=== PATIENT | female | born 1985 | race Caucasian/White ===

== ENCOUNTER 2021-03-01 19:37 | Emergency (ER) | payer SELFPAY ==
[~2021-03-01] VITALS: Ht 160 cm; Wt 54.5 kg
[2021-03-01 20:34] LABS: HEMATOCRIT 41.6 % (37.0-47.0); HEMOGLOBIN 13.7 g/dl (12.0-16.0); IMMATURE GRANULOCYTES 0.1 % (0.0-5.0); MEAN CELL VOLUME 91.8 fL CALC (80.0-100.0); MEAN CORPUSCULAR HGB 30.2 pG CALC (26.0-32.0); MEAN CORPUSCULAR HGB CONC 32.9 g/dL CAL (32.0-36.0); NEUT# 5.68 thou/uL (2.00-7.15); RED BLOOD COUNT 4.53 mill/uL (4.20-5.60); RED CELL DISTRI WIDTH 15.5 % (11.5-15.5)
[2021-03-01 20:53] LABS: ALBUMIN 5.2 g/dL (3.2-5.0); ALKALINE PHOSPHATASE 69 u/l (38-126); ANION GAP 22 (6-22 (CALC)); BILIRUBIN, TOTAL 0.7 mg/dL (0.0-1.4); BUN 11 mg/dL (7-17); BUN/CREATININE RATIO 16 (12-20 (CALC)); CARBON DIOXIDE 24 mmol/l (22-30); CHLORIDE 103 mmol/l (95-108); CREATININE 0.7 mg/dL (0.5-1.0); ETHYL ALCOHOL 277 mg/dl (0-30); GFR > 60 ML/MIN (>=60 (CALC)); GFR FOR AFR.AMER. > 60 ML/MIN (>=60 (CALC)); MAGNESIUM 1.7 mg/dL (1.6-2.3); POTASSIUM 3.5 mmol/l (3.5-5.1); SGOT/AST 40 u/l (14-36); SODIUM 145 mmol/l (137-146); TOTAL PROTEIN 8.8 g/dL (6.3-8.2)
[2021-03-02 07:22] VITALS: BP 145/93
== END 2021-03-02 07:23 | disposition home or self-care (01) | DRG 880 ==
LOC: ED 19:37
PROVIDERS: Family Medicine
DX: F41.9 Anxiety disorder, unspecified (principal); T74.11XA Adult physical abuse, confirmed, initial encounter; F10.129 Alcohol abuse with intoxication, unspecified; T14.8XXA Other injury of unspecified body region, initial encounter; Y07.03 Male partner, perpetrator of maltreatment and neglect